=== PATIENT | female | born 1995 | race Caucasian/White ===

== ENCOUNTER → 2021-01-15 | Outpatient (CLI) | payer BC | LOC: HEART 5 09:03 | DX: R06.00 Dyspnea, unspecified (principal) | CPT/HCPCS: 94010 ==

== ENCOUNTER 2021-07-20 22:31 | Inpatient (IN) | payer BC ==
[~2021-07-20] VITALS: Ht 157.5 cm; Wt 72.6 kg
[2021-07-20 23:57] LABS: HEMOGLOBIN 12.1 gm/dl (12.3-15.3); RED BLOOD COUNT 4.02 M/UL (4.00-5.10); WHITE BLOOD COUNT 7.9 K/UL (4.5-11.0)
[2021-07-21] MEDS ORDERED: IBU600 MG PO (18:46)
[2021-07-21] MEDS ORDERED: DULCOLAX STOOL100 MG PO (18:46)
[2021-07-22 05:55] LABS: HEMOGLOBIN 12.1 gm/dl (12.3-15.3)
== END 2021-07-23 16:54 | disposition home or self-care (01) | DRG 807 ==
LOC: GENOP 22:31 → OB 07-21 00:24
PROVIDERS: Obstetrics & Gynecology; ADMIT Obstetrics & Gynecology
PROC: 4A1HXCZ Monitoring of Products of Conception, Cardiac Rate, External Approach (ICD-10-PCS; 2021-07-20)
PROC: 10E0XZZ Delivery of Products of Conception, External Approach (ICD-10-PCS; principal; 2021-07-21)
PROC: 10907ZC Drainage of Amniotic Fluid, Therapeutic from Products of Conception, Via Natural or Artificial Opening (ICD-10-PCS; 2021-07-21)
PROC: 3E0234Z Introduction of Serum, Toxoid and Vaccine into Muscle, Percutaneous Approach (ICD-10-PCS; 2021-07-21)
DX: O13.4 Gestational [pregnancy-induced] hypertension without significant proteinuria, complicating childbirth (principal); Z37.0 Single live birth; Z3A.39 39 weeks gestation of pregnancy; Z20.822 Contact with and (suspected) exposure to COVID-19; O99.824 Streptococcus B carrier state complicating childbirth; O70.0 First degree perineal laceration during delivery; Z23 Encounter for immunization
CPT/HCPCS: 36415; 81001; 82247; 82248; 82565; 82570; 82800; 84156; 84450; 84460; 84550; 85014; 85018; 85025; 85379; 85384; 85610; 85730; 90471; 90715; J2210; J2405; J2590; J7120